=== PATIENT | female | born 2000 | race African-American/Black ===

== ENCOUNTER 2018-06-12 10:30 | Emergency (ER) | payer MEDICAID ==
[~2018-06-12] VITALS: Ht 160 cm; Wt 47.6 kg
[2018-06-12 10:42] VITALS: BP 125/73
[2018-06-12] MEDS ORDERED: IBUPROFEN 800 MG TAB PO ONE (12:00)
== END 2018-06-12 12:19 | disposition home or self-care (01) ==
LOC: ER 10:30
DX: J02.9 Acute pharyngitis, unspecified (principal); J45.909 Unspecified asthma, uncomplicated

== ENCOUNTER 2018-08-04 14:19 | Emergency (ER) | payer MEDICAID ==
[~2018-08-04] VITALS: Ht 160 cm; Wt 47.2 kg
[2018-08-04 14:43] VITALS: BP 121/71
== END 2018-08-04 16:22 | disposition left against medical advice (07) ==
LOC: ER 14:28
DX: R05 Cough (principal); Z53.21 Procedure and treatment not carried out due to patient leaving prior to being seen by health care provider